=== PATIENT | male | born 1965 | race Caucasian/White ===

== ENCOUNTER 2021-11-29 09:52 | Emergency (ER) | payer OTHER ==
[2021-11-29 10:29] LABS: BASOPHIL 0.9 % (0-2); EOSINOPHIL 1.7 % (0-5); HCT 46.4 % (42.0-52.0); HGB 15.9 g/dl (13.2-18.0); LYMPHOCYTE 21.1 % (15-48); MCH 31.5 pg (25.0-31.0); MCHC 34.3 g/dL (32.0-36.0); MCV 91.9 fL (78.0-100.0); MONOCYTE 8.2 % (0-12); MPV 9.1 fL (6.0-9.5); NEUTROPHIL 67.9 % (41-80); NRBC 0; PLT 420 K/uL (150-400); RBC 5.05 M/uL (4.70-6.00); RDW 13.5 % (11.5-14.0); WBC 5.9 K/uL (4.0-10.5)
[2021-11-29 10:35] LABS: INR 1.06 (0.9-1.2); PROTHROMBIN TIME 13.2 SECONDS (11.8-13.4)
[2021-11-29 10:36] LABS: PTT 34.9 SECONDS (24.4-34.7)
[2021-11-29 11:12] LABS: ALBUMIN 4.2 g/dL (3.4-5.0); BILIRUBIN - TOTAL 0.9 mg/dL (0.2-1.0); GLOBULIN (CALCULATION) 3.7 g/dL; POTASSIUM 3.5 mmol/L (3.5-5.1); TOTAL PROTEIN 7.9 g/dL (6.4-8.2)
[2021-11-29 11:23] LABS: CREATININE 0.9 mg/dL (0.67-1.17)
== END 2021-11-29 13:29 | disposition home or self-care (01) ==
LOC: FER 09:52
PROVIDERS: Emergency Medicine
DX: R07.89 Other chest pain (principal); I10 Essential (primary) hypertension; F17.200 Nicotine dependence, unspecified, uncomplicated; Z28.311 Partially vaccinated for COVID-19
CPT/HCPCS: 36415; 71045; 80053; 84484; 85025; 85610; 85730; 93005; J1885